=== PATIENT | female | born 1955 | race Caucasian/White ===

== ENCOUNTER 2016-04-15 11:49 | Emergency (ER) | payer MEDICAID ==
--- NOTE | 2016-04-15 12:00 | Emergency Department Record ---
History of Present Illness - General Chief complaint: Cold Stated complaint: COLD Time Seen by Provider: 04/15/16 12:00 Source: Patient Mode of Arrival: Ambulatory Limitations: No limitations - History of Present Illness Initial comments: The patient is here due to a 4 day hx of cough, congestion, nasal drainage and body aches. She denies any fever, but has had chills. The patient does have a hx of COPD but quit smoking 2 weeks ago. She believes she has influenza. She does have some chest tightness when coughing. MD complaint: Other Onset/Timin -: Days(s) Severity: Mild Severity scale (1-10): 5 Consistency: Constant Improves with: None Worsens with: None Context- Ear: Recent illness Associated Symptoms: Cough, Rhinorrhea - Related Data Home Medications Medication Instructions Recorded Confirmed Last Taken Fluticasone Propionate [Flonase] 2 spray EACH NARES DAILY 04/15/16 04/15/16 Unknown Montelukast Sodium [Singulair] 10 mg PO QHS 04/15/16 04/15/16 Unknown Ranitidine HCl [Zantac] 300 mg PO DAILY 04/15/16 04/15/16 Unknown Previous Rx's Medication Instructions Recorded Benzonatate [Tessalon] 1 cap PO Q8H PRN #15 cap 04/15/16 Doxycycline Monohydrate [Mondoxyne 100 mg PO BID #14 capsule 04/15/16 Nl] Allergies Allergy/AdvReac Type Severity Reaction Status Date / Time sulfamethoxazole Allergy HIVES Verified 04/15/16 12:00 [From Bactrim] trimethoprim [From Bactrim] Allergy HIVES Verified 04/15/16 12:00 Travel Screening - Travel/Exposure Within Last 30 Days Have you traveled within the last 30 days?: No Review of Systems Constitutional: Denies: Chills, Fever Eyes: Denies: Eye discharge ENT: Reports: Congestion Respiratory: Reports: Cough, Dyspnea. Denies: Hemoptysis Cardiovascular: Denies: Chest pain Past Medical History - SOCIAL HISTORY Smoking Status: Current every day smoker Alcohol Use: None Drug Use: None - RESPIRATORY Hx Respiratory Disorders: Yes Hx Asthma: Yes Hx Bronchitis: Yes Hx COPD: Yes - CARDIOVASCULAR Hx Cardio Disorders: No - NEURO Hx Neuro Disorders: No - GI Hx GI Disorders: No - Hx Genitourinary Disorders: No - ENDOCRINE Hx Endocrine Disorders: No - MUSCULOSKELETAL Hx Musculoskeletal Disorders: No - PSYCH Hx Psych Problems: No - HEMATOLOGY/ONCOLOGY Hx Hematology/Oncology Disorders: No Family Medical History Any Significant Family History?: No Physical Exam - General General Appearance: Alert, Oriented x3, Cooperative, No acute distress - Head Head exam: Atraumatic, Normocephalic, Normal inspection - Eye Eye exam: Normal appearance, PERRL - ENT Throat exam: Normal inspection. negative: Tonsillar erythema, Tonsillar exudate - Neck Neck exam: Normal inspection, Full ROM. negative: Tenderness - Respiratory Respiratory exam: Normal lung sounds bilaterally. negative: Respiratory distress, Stridor, Wheezes - Cardiovascular Cardiovascular Exam: Regular rate, Normal rhythm, Normal heart sounds - GI/Abdominal GI/Abdominal exam: Soft, Normal bowel sounds. negative: Tenderness - Extremities Extremities exam: Normal inspection, Full ROM, Normal capillary refill. negative: Tenderness - Neurological Neurological exam: Normal gait. negative: Abnormal gait Course Vital Signs 04/15/16 11:52 Temperature 98.5 F Pulse Rate 111 H Respiratory 20 Rate Blood Pressure 132/71 Pulse Ox 96 - Reevaluation(s) Reevaluation #1: The patient is resting comfortably. I explained to her that it appears she has Influenza. She is to continue her inhallers and take Doxycycline due to a possible bacterial suprainfection. 04/15/16 13:04 Medical Decision Making - Data Complexity MDM Data: Labs Ordered and/or Reviewed (Flu A pos.), X-Ray Ordered and/or Reviewed - Radiology Data Radiology results: Report reviewed (CXR: Neg.) Disposition Disposition: Discharge Clinical Impression: Influenza A Disposition: Home, Self-Care Condition: (1) Good Instructions: Influenza (ED) Additional Instructions: Please use Tylenol or Motrin for fever and body aches. Please continue your inhallers and take the Doxycycline and Tessalon as directed. Please see your PCP early next week if not better. Prescriptions: Doxycycline Monohydrate [Mondoxyne Nl] 100 mg PO BID #14 capsule Benzonatate [Tessalon] 1 cap PO Q8H PRN #15 cap PRN Reason: Cough Forms: Patient Portal Access Time of Disposition: 13:07
[2016-04-15 12:28] LABS: INFLUENZA A POSITIVE (NEGATIVE); INFLUENZA B NEGATIVE (NEGATIVE)
--- NOTE | 2016-04-20 12:28 | RADIOLOGY REPORT ---
EXAM: CHEST, TWO VIEWS HISTORY: PATIENT HAS HISTORY OF COUGH AND CONGESTION WITH FEVER AND CHILLS TIMES THREE WEEKS. TECHNIQUE: Two views of the chest were provided along with the comparison study dated 10/17/08. FINDINGS: The cardiomediastinal silhouette is within normal limits for size and contour. The kerline appear unremarkable. There is no radiographic evidence of a focal infiltrate, pleural effusion, or pneumothorax. Calcified granuloma within the right mid lung field is unchanged. IMPRESSION: NO RADIOGRAPHIC EVIDENCE OF AN ACUTE INTRATHORACIC PROCESS. JOB NUMBER: [id number] MTDD
== END 2016-04-15 13:22 | disposition home or self-care (01) ==
LOC: ER 11:49
DX: J10.1 Influenza due to other identified influenza virus with other respiratory manifestations (principal); R07.89 Other chest pain; R05 Cough; J44.9 Chronic obstructive pulmonary disease, unspecified; Z87.891 Personal history of nicotine dependence
CPT/HCPCS: 71020; 87400; 99283